=== PATIENT | female | born 1990 | race Caucasian/White ===

== ENCOUNTER 2018-11-15 12:46 | Outpatient (CLI) | payer MEDICAID ==
[~2018-11-15] VITALS: Ht 152.4 cm; Wt 68.1 kg
[2018-11-15 12:58] VITALS: BP 107/63
[2018-11-15 13:23] LABS: MICROSCOPIC INDICATED
[2018-11-15] MEDS ORDERED: ACETAMINOPHEN 325 MG TABLET ONE (13:45)
[2018-11-15] MEDS ORDERED: ACETAMINOPHEN 325 MG TABLET PO ONE (14:00)
== END 2018-11-15 13:50 | disposition home or self-care (01) ==
LOC: LDOP 12:46
PROVIDERS: ATTEND Obstetrics & Gynecology
DX: O26.893 Other specified pregnancy related conditions, third trimester (principal); R10.2 Pelvic and perineal pain; Z3A.31 31 weeks gestation of pregnancy
CPT/HCPCS: 59025; 81001; 87077; 87086; 99201; G0463